=== PATIENT | female | born 1995 | race American Indian/Alaskan Native ===

== ENCOUNTER 2017-10-19 00:15 | Emergency (ER) | payer SELFPAY ==
[2017-10-19] MEDS ORDERED: Sodium Chloride 0.9% 1,000 ML IV SCH (01:00)
[2017-10-19] MEDS ORDERED: Insulin Regular 100 units/ml IV STA (01:12)
[2017-10-19] MEDS ORDERED: Insulin Regular 100 units/ml ONE (01:44)
--- NOTE | 2017-10-19 01:57 | ED PDOC ---
HPI: Abdomen <Melanie Trammell - Last Filed: 10/19/17 07:12> Chief Complaint (Provider): Abdominal Pain History Per: Patient History/Exam Limitations: no limitations Onset/Duration Of Symptoms: Days (x2) Location Of Pain/Discomfort: Diffuse Quality Of Discomfort: "Pain" Associated Symptoms: Vomiting <Rosalee Akhtar - Last Filed: 10/22/17 12:33> Time Seen by Provider: 10/19/17 00:35 Chief Complaint (Nursing): Abdominal Pain Additional Complaint(s): 22 y/o female with a PMHx of DM, HTN and asthma presents to the ED complaining of generalized abdominal pain for the last two days. Patient reports pain is sharp and most severe in the epigastric region. Patient states that tonight after eating dinner, she had nausea and 2 episodes of non-bloody, non-bilious vomiting. Patient reports pain temporarily relieved with Tylenol at 8 pm today. Patient states she is a diabetic and has not taken her insulin dosage yet tonight but took her dose this morning. Otherwise: (-) fever, (-) chills, (-) diarrhea, (-) urinary symptoms, (-) history of abdominal surgery, (-) cough, (- ) shortness of breath, (-) headache, (-) dizziness PMD: Out of State (in [place]) LNMP: 09/23/2017 (Roslaee Akhtar) Past Medical History <Melanie Trammell - Last Filed: 10/19/17 07:12> Reviewed: Historical Data, Nursing Documentation, Vital Signs - Medical History PMH: Asthma, Diabetes, HTN - Surgical History Surgical History: No Surg Hx - Family History Family History: States: Unknown Family Hx - Social History Current smoker - smoking cessation education provided: No Alcohol: Social Drugs: Cannabis <Rosalee Akhtar - Last Filed: 10/22/17 12:33> Vital Signs: Last Vital Signs Temp 98.1 F 10/19/17 11:32 Pulse 88 10/19/17 11:32 Resp 15 10/19/17 11:32 BP 116/60 10/19/17 11:32 Pulse Ox 100 10/19/17 11:32 - Home Medications Home Medications: Ambulatory Orders Medication Instructions Recorded Ciprofloxacin HCl [Cipro] 250 mg PO BID #9 tablet 10/19/17 - Allergies Allergies/Adverse Reactions: Allergies Allergy/AdvReac Type Severity Reaction Status Date / Time Iodinated Contrast- Oral and Allergy RASH Verified 10/19/17 00:32 IV Dye peanut Allergy ANAPHYLAXIS Verified 10/19/17 00:32 shellfish derived Allergy RASH Verified 10/19/17 00:32 Review of Systems ROS Statement: Except As Marked, All Systems Reviewed And Found Negative Constitutional: Negative for: Fever, Chills Respiratory: Negative for: Cough, Shortness of Breath Gastrointestinal: Positive for: Nausea, Vomiting, Abdominal Pain. Negative for : Diarrhea Genitourinary Female: Negative for: Dysuria, Frequency, Hematuria Neurological: Negative for: Headache, Dizziness <Rosalee Akhtar - Last Filed: 10/22/17 12:33> Physical Exam <Melanie Trammell - Last Filed: 10/19/17 07:12> - Reviewed Nursing Documentation Reviewed: Yes Vital Signs Reviewed: Yes <Rosalee Akhtar - Last Filed: 10/22/17 12:33> - Physical Exam Comments: GENERAL APPEARANCE: Patient is awake, alert, oriented x 3, in mild painful distress. SKIN: Warm, dry; (-) cyanosis. EYES: (-) conjunctival pallor, (-) scleral icterus. ENMT: Mucous membranes moist. Airway patent, (-) stridor. NECK: Supple, FROM CHEST AND RESPIRATORY: (-) rales, (-) rhonchi, (-) wheezes; breath sounds equal bilaterally. Respirations even and nonlabored. HEART AND CARDIOVASCULAR: (-) irregularity ABDOMEN AND GI: Soft (-) distention. Bowel sounds active x4; (+) tenderness in the right upper quadrant, left upper quadrant and epigastric tenderness. (-) guarding, (-) rebound, (-) palpable masses, (-) CVA tenderness. EXTREMITIES: (-) deformity NEURO AND PSYCH: Mental status as above; (-) focal findings. Gait steady, speech clear. (-) facial asymmetry (Rosalee Akhtar) - Laboratory Results Result Diagrams: 10/19/17 02:11 10/19/17 02:11 <Melanie Trammell - Last Filed: 10/19/17 07:12> - Laboratory Results Result Diagrams: 10/19/17 02:11 10/19/17 02:11 Urine POC: Negative Urine dip results: Positive for: Blood (large), Glucose (500). Negative for: Leukocyte Esterase, Nitrate, Ketones, Bilirubin, Protein - ECG O2 Sat by Pulse Oximetry: 97 (RA) Pulse Ox Interpretation: Normal <Rosalee Akhtar - Last Filed: 10/22/17 12:33> Medical Decision Making <Melanie Trammell - Last Filed: 10/19/17 07:12> <Rosalee Akhtar - Last Filed: 10/22/17 12:33> Medical Decision Making: Time: 0653 Plan: -- Gallbladder US Time: 07 -- Patient endorsed to Dr. Dawn, pending US. ____ Scribe Attestation: Documented by Jeff Hoff acting as a scribe for Dr. Melanie Trammell MD. Provider Scribe Attestation: All medical record entries made by the Scribe were at my direction and personally dictated by me. I have reviewed the chart and agree that the record accurately reflects my personal performance of the history, physical exam, medical decision making, and the department course for this patient. I have also personally directed, reviewed, and agree with the discharge instructions and disposition. (Melanie Trammell) Time: 010 Impression: Abdominal Pain, Nausea, Vomiting Plan: -- Amylase -- CMP -- Urine Drug Screen -- Lipase -- ED Urine -- ED Urine Dipstick -- CBC with differentials -- HumuLIN 8 units -- Sodium Chloride IV 1000 mls/hr -- Pepcid 40 mg IVP -- Toradol 30 mg IVP -- Zofran Inj 4 mg IVP -- Repair Service Clerk -- IV Insertion -- Glucose, Blood, POC -- Accucheck results = 356. 8 units of insulin ordered for elevated glucose levels. 0240 Labs reviewed and grossly unremarkable with the exception of hyperglycemia. Lipase WNL. Patient reports persistent abdominal pain however notes resolution of nausea. (+) epigastric, RUQ, and LUQ pain on re-eval CT abd/pel without PO and IV contrast ordered due to patient allergies. Patient states she required an epi-pen the last time she was given Contrast due to facial swelling, SOB. 0305 Repeat accucheck: 113 0330 Udip reviewed, U/A and U/C ordered. Upreg Negative. Repeat HR: 63 0340 Patient requesting additional pain medication at this time. Morphine 2mg IVP ordered. [address] 0500 Urine drug screen: negative Pending U/A and CT read. Time: 0615 CT RESULTS FINDINGS: Lung bases: 7 mm left lower lobe pulmonary nodule. ABDOMEN: Liver: The liver is unremarkable. Gallbladder and bile ducts: The gallbladder is unremarkable. No biliary ductal dilatation. Pancreas: The pancreas is unremarkable. Spleen: The spleen is unremarkable. Adrenals: The adrenal glands are unremarkable. Kidneys and ureters: No stones. No hydronephrosis. Stomach and bowel: Short segment of jejunal wall thickening and mild distention in the central abdomen, without a discrete transition point. No pericolonic inflammatory change or wall thickening. PELVIS: Appendix: Normal appendix. Bladder: No focal wall thickening of the urinary bladder. No stones. Reproductive: Uterus is unremarkable. No suspicious adnexal lesion seen. ABDOMEN and PELVIS: Intraperitoneal space: No significant peritoneal free fluid. No free peritoneal air. Bones/joints: No acute osseous abnormality. Soft tissues: There is a small fat-containing umbilical hernia. Vasculature: Significantly limited assessment of the vasculature without contrast. No aortic aneurysm. Lymph nodes: Mild bilateral inguinal adenopathy with nodes measuring up to 1.2 cm. IMPRESSION: 1. Short segment of jejunal wall thickening and mild distention in the central abdomen, without a discrete transition point. Infectious or inflammatory enteritis is favored. 2. Mild bilateral inguinal adenopathy with nodes measuring up to 1.2 cm. 3. 7 mm left lower lobe pulmonary nodule. Fleischner criteria do not apply to patients less than 35 years of age and followup is recommended on a clinical basis. Thank you for allowing us to participate in the care of your patient. Dictated and Authenticated by: Cm Flores MD 10/19/2017 6:14 AM Eastern Time ([place] & [place]) 0630 Continuation of care per Dr Trammell pending U/A and further disposition. ____ Scribe Attestation: Documented by Jeff Hoff acting as a scribe for Rosalee Akhtar PA-C. Provider Scribe Attestation: All medical record entries made by the Scribe were at my direction and personally dictated by me. I have reviewed the chart and agree that the record accurately reflects my personal performance of the history, physical exam, medical decision making, and the department course for this patient. I have also personally directed, reviewed, and agree with the discharge instructions and disposition. (Rosalee Akhtar) Disposition <Melanie Trammell - Last Filed: 10/19/17 07:12> - Patient ED Disposition Is Patient to be Admitted: Transfer of Care (Dr Dawn at 0700 pending U/S results) - Disposition Disposition: Transfer of Care (Dr Dawn, pending U/S results) Disposition Time: 07:00 - POA Present On Arrival: Poor Glycemic Control <Rosalee Akhtar - Last Filed: 10/22/17 12:33> - Clinical Impression Clinical Impression: Pulmonary nodule, Enteritis, UTI (urinary tract infection) - Disposition Condition: STABLE Prescriptions: Ciprofloxacin HCl [Cipro] 250 mg PO BID #9 tablet - Lab Results Lab Results: 10/19/17 10/19/17 10/19/17 06:28 03:27 03:02 WBC RBC Hgb Hct MCV MCH MCHC RDW Plt Count MPV Neut % (Auto) Lymph % (Auto) [place] % (Auto) Eos % (Auto) Baso % (Auto) Neut # (Auto) Lymph # (Auto) [place] # (Auto) Eos # (Auto) Baso # (Auto) Sodium Potassium Chloride Carbon Dioxide Anion Gap BUN Creatinine Est GFR ( Amer) Est GFR (Non-Af Amer) POC Glucose (mg/dL) 113 H Random Glucose Calcium Total Bilirubin AST ALT Alkaline Phosphatase Total Protein Albumin Globulin Albumin/Globulin Ratio Amylase Lipase Urine Color Yellow Urine Clarity Cloudy Urine pH 5.0 Ur Specific [place] 1.035 H Urine Protein 100 Urine Glucose (UA) >=500 Urine Ketones 20 Urine Blood Large Urine Nitrate Negative Urine Bilirubin Negative Urine Urobilinogen 2.0 H Ur Leukocyte Esterase Small Urine RBC (Auto) 1343 H Urine Microscopic WBC 38 H Ur Squamous Epith Cells 3 Urine Bacteria Occ H Urine Opiates Screen Negative Urine Methadone Screen Negative Ur Barbiturates Screen Negative Ur Phencyclidine Scrn Negative Ur Amphetamines Screen Negative U Benzodiazepines Scrn Negative U Oth Cocaine Metabols Negative U Cannabinoids Screen Negative 10/19/17 10/19/17 10/19/17 02:11 02:11 01:11 WBC 8.3 RBC 4.98 Hgb 13.5 Hct 40.0 MCV 80.3 L MCH 27.1 MCHC 33.7 RDW 13.1 Plt Count 356 MPV 8.2 Neut % (Auto) 56.5 Lymph % (Auto) 34.2 [place] % (Auto) 6.6 Eos % (Auto) 1.6 Baso % (Auto) 1.1 Neut # (Auto) 4.7 Lymph # (Auto) 2.9 [place] # (Auto) 0.6 Eos # (Auto) 0.1 Baso # (Auto) 0.1 Sodium 137 Potassium 4.1 Chloride 97 L Carbon Dioxide 26 Anion Gap 18 BUN 10 Creatinine 0.5 L Est GFR ( Amer) > 60 Est GFR (Non-Af Amer) > 60 POC Glucose (mg/dL) 359 H Random Glucose 375 H Calcium 9.2 Total Bilirubin 0.4 AST 24 ALT 18 Alkaline Phosphatase 67 Total Protein 7.4 Albumin 4.1 Globulin 3.3 Albumin/Globulin Ratio 1.2 Amylase 117 H Lipase 223 Urine Color Urine Clarity Urine pH Ur Specific [place] Urine Protein Urine Glucose (UA) Urine Ketones Urine Blood Urine Nitrate Urine Bilirubin Urine Urobilinogen Ur Leukocyte Esterase Urine RBC (Auto) Urine Microscopic WBC Ur Squamous Epith Cells Urine Bacteria Urine Opiates Screen Urine Methadone Screen Ur Barbiturates Screen Ur Phencyclidine Scrn Ur Amphetamines Screen U Benzodiazepines Scrn U Oth Cocaine Metabols U Cannabinoids Screen
[2017-10-19 02:19] LABS: BASO # 0.1 K/uL (0.0-0.2); BASO % 1.1 % (0.0-2.0); EOS # 0.1 K/uL (0.0-0.7); EOS % 1.6 % (0.0-4.0); HEMOGLOBIN 13.5 g/dL (12.0-16.0); LYMPH # 2.9 K/uL (1.0-4.3); LYMPH % 34.2 % (20.0-40.0); MEAN CELL VOLUME 80.3 fl (81.0-99.0); MEAN CORPUSCULAR HEMOGLOBIN 27.1 pg (27.0-31.0); MEAN CORPUSCULAR HGB CONC 33.7 g/dL (33.0-37.0); MEAN PLATELET VOLUME 8.2 fl (7.2-11.7); MONO # 0.6 K/uL (0.0-0.8); MONO % 6.6 % (0.0-10.0); NEUT # 4.7 K/uL (1.8-7.0); NEUT % 56.5 % (50.0-75.0); RBC 4.98 Mil/uL (3.80-5.20); RED CELL DISTRIBUTION WIDTH 13.1 % (11.5-14.5); WHITE BLOOD COUNT 8.3 K/uL (4.8-10.8)
[2017-10-19 02:25] LABS: ALB/GLOB RATIO 1.2 (1.0-2.1); ALBUMIN 4.1 g/dL (3.5-5.0); ALT/SGPT 18 U/L (9-52); AMYLASE 117 U/L (30-110); AST/SGOT 24 U/L (14-36); BLOOD UREA NITROGEN 10 mg/dl (7-17); CALCIUM 9.2 mg/dL (8.4-10.2); GFR AFRICAN-AMERICAN > 60; GFR NON-AFRICAN AMERICAN > 60; LIPASE 223 U/L (23-300)
[2017-10-19] MEDS ORDERED: Iohexol 240 (50 ml) ONE (03:33)
[2017-10-19 03:49] LABS: BARBITURATES, UR NEGATIVE (NEGATIVE); BENZODIAZEPINES, UR NEGATIVE (NEGATIVE); OPIATES, UR NEGATIVE (NEGATIVE); PHENCYCLIDINE, UR NEGATIVE (NEGATIVE)
[2017-10-19 06:48] LABS: SQUAMOUS EPITHIAL 3 /hpf (0-5); URINE BACTERIA OCC (<OCC); URINE BILIRUBIN NEGATIVE (NEGATIVE); URINE BLOOD LARGE (NEGATIVE); URINE CLARITY CLOUDY (Clear); URINE COLOR YELLOW (YELLOW); URINE GLUCOSE (UA) >=500 mg/dL (Normal); URINE LEUKOCYTE ESTERASE SMALL Leu/uL (Negative); URINE PROTEIN 100 mg/dL (NEGATIVE)
--- NOTE | 2017-10-19 07:07 | ED PDOC ---
- Laboratory Results Result Diagrams: 10/19/17 02:11 10/19/17 02:11 Urine POC: Negative - ECG O2 Sat by Pulse Oximetry: 97 (RA) Disposition - Clinical Impression Clinical Impression: Abdominal pain, Pulmonary nodule, Enteritis - Disposition Forms: [employer] ([place]) Addendum Addendum: 10/19/17 07:00 Pt signed out by Dr. Trammell pending ultrasound, UTI.
--- NOTE | 2017-10-19 10:44 | US ---
Date of service: 10/19/2017 HISTORY: RUQ pain COMPARISON: None. TECHNIQUE: Sonographic evaluation of the right upper quadrant of the abdomen. FINDINGS: LIVER: Measures 15.0 cm in length. Diffusely increased echogenicity of the liver parenchyma. Consistent with fatty infiltration. Smooth contour. No mass. No biliary ductal dilatation. GALLBLADDER: Gallbladder contracted. No calculi. No mural thickening. Negative sonographic Smith sign. COMMON BILE DUCT: Measures 2 mm. No stones. No dilatation. PANCREAS: Unremarkable as visualized. No mass. No ductal dilatation. RIGHT KIDNEY: Measures 11.3 cm in length. Normal echogenicity. No calculus, mass, or hydronephrosis. AORTA: No aneurysmal dilatation. IVC: Unremarkable. OTHER FINDINGS: None . IMPRESSION: Unremarkable examination aside from fatty infiltration of the liver.
[2017-10-19 11:32] VITALS: BP 116/60; PULSE 88; RESP 15; TEMP 98.1
--- NOTE | 2017-10-19 11:58 | CT ---
Date of service: 10/19/2017 PROCEDURE: CT Abdomen and Pelvis without intravenous contrast HISTORY: abdominal pain, N V COMPARISON: None. TECHNIQUE: Without contrast.. Contrast dose: 0 Radiation dose: Total exam DLP = 738.91 mGy-cm. This CT exam was performed using one or more of the following dose reduction techniques: Automated exposure control, adjustment of the mA and/or kV according to patient size, and/or use of iterative reconstruction technique. FINDINGS: LOWER THORAX: 7 mm sub solid nodule in left lower lobe. Recommend followup noncontrast chest CT examination in 6-12 months as per Fleischner society criteria. LIVER: Unremarkable. No gross lesion or ductal dilatation. GALLBLADDER AND BILE DUCTS: Unremarkable. PANCREAS: Unremarkable. No gross lesion or ductal dilatation. SPLEEN: Unremarkable. ADRENALS: Unremarkable. No mass. KIDNEYS AND URETERS: Unremarkable. No hydronephrosis. No solid mass. VASCULATURE: Unremarkable. No aortic aneurysm. BOWEL: Mild dilatation and mural thickening of several loops of jejunum in the central upper abdomen. Nonspecific. Consistent with focal enteritis. No other abnormal bowel loops are identified. APPENDIX: Unremarkable. Normal appendix. PERITONEUM: Minimal fluid in cul-de-sac. Small umbilical hernia containing only mesenteric fat. No pneumoperitoneum. LYMPH NODES: Shotty subcentimeter pelvic and inguinal lymph nodes. Mild dwain enlargement of several inguinal nodes bilaterally. BLADDER: Poorly distended REPRODUCTIVE: Normal uterus BONES: No acute fracture. OTHER FINDINGS: None. IMPRESSION: Nonspecific focal enteritis in central upper abdomen. No other acute abnormality identified. Please note 7 mm sub solid nodule left lower lobe for which followup noncontrast chest CT examination is advised in 6-12 months as per Fleischner society criteria. The preliminary findings for this examination were reported by [employer] at 6:14 a.m. on 10/19/2017. There is discordance of this report with the preliminary findings. See above recommendation regarding follow-up for left lower lobe pulmonary nodule.
[2017-10-22 12:31] VITALS: O2SAT 97
== END 2017-10-19 11:32 | disposition home or self-care (01) ==
LOC: H.ER 00:15
DX: R91.1 Solitary pulmonary nodule (principal); K52.9 Noninfective gastroenteritis and colitis, unspecified; Z79.4 Long term (current) use of insulin; E11.65 Type 2 diabetes mellitus with hyperglycemia; I10 Essential (primary) hypertension; J45.909 Unspecified asthma, uncomplicated
CPT/HCPCS: 74176; 76705; 80053; 81003; 81025; 82150; 82948; 83690; 85025; 87086; 87181; 96361; 96374; 96375; 99284; G0480; J1885; J2270; J2405; J7030

== ENCOUNTER 2017-12-10 00:20 | Emergency (ER) | payer MEDICAID ==
[2017-12-10] MEDS ORDERED: Sodium Chloride 0.9% 1,000 ML IV STA ×3 (00:50→07:51)
[2017-12-10] MEDS ORDERED: Albuterol-Ipratrop 3 mg / 0.5 (3 ml) UD INH STA (00:51)
--- NOTE | 2017-12-10 00:58 | ED PDOC ---
Syncope/Near Syncope/Dizziness Time Seen by Provider: 12/10/17 00:30 Chief Complaint (Nursing): Dizziness/Lightheaded Chief Complaint (Provider): generalized sickness History Per: Patient History/Exam Limitations: no limitations Onset/Duration Of Symptoms: Days (x1 week) Additional Complaint(s): Ernestine Morfin, a 22 year old female with past medical history of diabetes, hypertension and asthma, presents to the emergency room after being off her diabetes medication for one week. Patient states she feels "being sick from not being on diabetes medication for a week". She reports not having a prescription as she is in between doctors right now and therefore does not have a PMD. Patient denies fever or vomiting, but states wheezing started tonight. She has a history of alcohol and substance abuse. Past Medical History Reviewed: Historical Data, Nursing Documentation, Vital Signs Vital Signs: Last Vital Signs Temp 98.1 F 12/10/17 00:46 Pulse 106 H 12/10/17 00:46 Resp 16 12/10/17 00:46 BP 124/65 12/10/17 00:46 Pulse Ox 98 12/10/17 00:46 - Medical History PMH: Asthma, Diabetes, HTN - Surgical History Surgical History: No Surg Hx - Family History Family History: States: Unknown Family Hx - Social History Current smoker - smoking cessation education provided: No Alcohol: None (alcohol abuse) Drugs: Other (substance abuse) - Home Medications Home Medications: Ambulatory Orders Medication Instructions Recorded Insulin Aspart, Recombinant 7 unit SC TID 11/09/17 [Novolog] Insulin Glargine, Recombina 20 unit SC QPM 11/09/17 [Lantus] Lisinopril 1 tab PO DAILY 11/09/17 Insulin Aspart Prot/Insuln Asp 7 unit SQ DAILY #1 vial 12/10/17 [Novolog Mix 70-30 Vial] Insulin Glargine,Hum.rec.anlog 20 unit SQ HS #1 vial 12/10/17 [Lantus] - Allergies Allergies/Adverse Reactions: Allergies Allergy/AdvReac Type Severity Reaction Status Date / Time Iodinated Contrast- Oral and Allergy RASH Verified 10/19/17 00:32 IV Dye peanut Allergy ANAPHYLAXIS Verified 10/19/17 00:32 shellfish derived Allergy RASH Verified 10/19/17 00:32 Review of Systems ROS Statement: Except As Marked, All Systems Reviewed And Found Negative Constitutional: Positive for: Other (" sick from not being on diabetes medication for a week"). Negative for: Fever Respiratory: Positive for: Wheezing Gastrointestinal: Negative for: Vomiting Physical Exam - Reviewed Nursing Documentation Reviewed: Yes Vital Signs Reviewed: Yes - Physical Exam Appears: Positive for: Well, Non-toxic, No Acute Distress Head Exam: Positive for: ATRAUMATIC, NORMAL INSPECTION, NORMOCEPHALIC Skin: Positive for: Normal Color Eye Exam: Positive for: Normal appearance ENT: Positive for: Normal ENT Inspection Neck: Positive for: Normal Cardiovascular/Chest: Positive for: Regular Rate, Rhythm Respiratory: Positive for: Wheezing (slight) Gastrointestinal/Abdominal: Positive for: Normal Exam, Soft Extremity: Positive for: Normal ROM Neurologic/Psych: Positive for: Alert, Oriented Comments: speaking in full sentences - Laboratory Results Result Diagrams: 12/10/17 01:02 12/10/17 01:02 - ECG O2 Sat by Pulse Oximetry: 98 (RA) Pulse Ox Interpretation: Normal Medical Decision Making Medical Decision Making: Time: 00:45 Initial Impression: asthma exac, diabetes uncontrolled, rule out DKA,, infection Initial Plan: --CMP --CBC w/ differential --Cxr portable --Glucose --Duoneb 3 ml inh --Sodium chloride 1000 ml IV --Urine culture --Urine test --Peak flow pre/post --Urinalysis 00:55 - sugar greater than 500- pt given insulin, iv fluids AG normal after nebulizer, pt wheezing imrpoved and states she feels better rest of labs reviewed. no signs of infection 7 am pt signed out to dr mcclain pending reeval/repeat sugar Scribe Attestation: Documented by Blanquita Flores, acting as a scribe for Sagar Mendez MD. Provider Scribe Attestation: All medical record entries made by the Scribe were at my direction and personally dictated by me. I have reviewed the chart and agree that the record accurately reflects my personal performance of the history, physical exam, medical decision making, and the department course for this patient. I have also personally directed, reviewed, and agree with the discharge instructions and disposition. Disposition - Clinical Impression Clinical Impression: Uncontrolled diabetes mellitus - Patient ED Disposition Is Patient to be Admitted: Transfer of Care - Disposition Referrals: [facility] [Outside] Disposition: Transfer of Care Disposition Time: 07:00 Condition: STABLE Prescriptions: Insulin Aspart Prot/Insuln Asp [Novolog Mix 70-30 Vial] 7 unit SQ DAILY #1 vial Insulin Glargine,Hum.rec.anlog [Lantus] 20 unit SQ HS #1 vial Instructions: Type 1 Diabetes Forms: [employer] ([place]), [employer] ED School/Work Excuse Patient Signed Over To: Ventura Mcclain
[2017-12-10] MEDS ORDERED: Albuterol-Ipratrop 3 mg / 0.5 (3 ml) UD ONE (01:08)
[2017-12-10 01:39] LABS: BASO % 0.6 % (0.0-2.0); EOS # 0.2 K/uL (0.0-0.7); EOS % 2.6 % (0.0-4.0); HEMOGLOBIN 12.2 g/dL (12.0-16.0); LYMPH # 2.5 K/uL (1.0-4.3); LYMPH % 34.8 % (20.0-40.0); MEAN CORPUSCULAR HEMOGLOBIN 26.1 pg (27.0-31.0); MEAN CORPUSCULAR HGB CONC 32.2 g/dL (33.0-37.0); MEAN PLATELET VOLUME 8.5 fl (7.2-11.7); MONO # 0.5 K/uL (0.0-0.8); MONO % 7.5 % (0.0-10.0); NEUT % 54.5 % (50.0-75.0); NRBC % 0.1 % (0.0-0.0); RBC 4.66 Mil/uL (3.80-5.20); RED CELL DISTRIBUTION WIDTH 12.4 % (11.5-14.5); WHITE BLOOD COUNT 7.3 K/uL (4.8-10.8)
[2017-12-10 01:40] LABS: SQUAMOUS EPITHIAL 1 /hpf (0-5); URINE BILIRUBIN NEGATIVE (NEGATIVE); URINE BLOOD SMALL (NEGATIVE); URINE CLARITY CLEAR (Clear); URINE COLOR STRAW (YELLOW); URINE GLUCOSE (UA) >=500 mg/dL (Normal); URINE LEUKOCYTE ESTERASE MOD Leu/uL (Negative); URINE PROTEIN NEGATIVE (NEGATIVE); URINE UROBILINOGEN 0.2-1.0 mg/dL (0.2-1.0)
[2017-12-10 02:20] LABS: ALB/GLOB RATIO 1.2 (1.0-2.1); ALBUMIN 3.9 g/dL (3.5-5.0); ALT/SGPT 15 U/L (9-52); AST/SGOT 13 U/L (14-36); BLOOD UREA NITROGEN 10 mg/dl (7-17); CALCIUM 9.2 mg/dL (8.4-10.2); GFR NON-AFRICAN AMERICAN > 60
[2017-12-10 02:26] LABS: ABG ALLEN TEST YES; ARTERIAL BLOOD GAS HCO3 24.3 mmol/L (21-28); ARTERIAL BLOOD GAS O2 SAT 52.5 % (95-98); ARTERIAL BLOOD GAS PCO2 53 mm/Hg (35-45); ARTERIAL BLOOD GAS PH 7.33 (7.35-7.45); ARTERIAL BLOOD GAS PO2 28 mm/Hg (80-100); ARTERIAL BLOOD GAS TCO2 29.5 mmol/L (22-28)
[2017-12-10] MEDS ORDERED: Insulin Regular 100 units/ml SC STA ×3 (03:44→06:17)
[2017-12-10] MEDS ORDERED: Insulin Regular 100 units/ml ONE (04:48)
[2017-12-10 07:56] VITALS: RESP 16
--- NOTE | 2017-12-10 10:05 | RAD ---
Date of service: 12/10/2017 HISTORY: sob COMPARISON: No prior. FINDINGS: LUNGS: No active pulmonary disease. PLEURA: No significant pleural effusion identified, no pneumothorax apparent. CARDIOVASCULAR: Normal. OSSEOUS STRUCTURES: No significant abnormalities. VISUALIZED UPPER ABDOMEN: Normal. OTHER FINDINGS: None. IMPRESSION: No acute cardiopulmonary disease appreciated.
--- NOTE | 2017-12-10 10:26 | ED PDOC ---
- Laboratory Results Result Diagrams: 12/10/17 01:02 12/10/17 01:02 - ECG O2 Sat by Pulse Oximetry: 100 Medical Decision Making Medical Decision Making: Glucose improving 308. Anion gap nl. Pt asymptomatic Pt noncompliant with meds Will write Rx for Novolg and Lantus Disposition - Clinical Impression Clinical Impression: Uncontrolled diabetes mellitus - POA Present On Arrival: None - Disposition Referrals: [facility] [Outside] Disposition: Routine/Home Disposition Time: 10:26 Prescriptions: Insulin Aspart Prot/Insuln Asp [Novolog Mix 70-30 Vial] 7 unit SQ DAILY #1 vial Insulin Glargine,Hum.rec.anlog [Lantus] 20 unit SQ HS #1 vial Instructions: Type 1 Diabetes Forms: [employer] [facility] ([place])
[2017-12-10 11:09] VITALS: BP 125/80; PULSE 75; TEMP 97.9
[2017-12-11 18:36] VITALS: O2SAT 98
== END 2017-12-10 11:15 | disposition home or self-care (01) ==
LOC: H.ER 00:20
DX: E11.65 Type 2 diabetes mellitus with hyperglycemia (principal); Z79.4 Long term (current) use of insulin; Z91.14 Patient's other noncompliance with medication regimen; I10 Essential (primary) hypertension; J45.901 Unspecified asthma with (acute) exacerbation
CPT/HCPCS: 36600; 71045; 80053; 81003; 81025; 82803; 82948; 85025; 87086; 96361; 96374; 99285; J2930; J7030

== ENCOUNTER 2017-12-16 23:04 | Emergency (ER) | payer MEDICAID ==
[2017-12-16 23:15] VITALS: RESP 16; O2SAT 99
[2017-12-16] MEDS ORDERED: Sodium Chloride 0.9% 1,000 ML IV STA (23:42)
[2017-12-16] MEDS ORDERED: Lidocaine 5% Patch TD STA (23:42)
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
[2017-12-17] MEDS ORDERED: Insulin Regular 100 units/ml SC STA (00:46)
[2017-12-17] MEDS ORDERED: Lidocaine 5% Patch TD ONE (01:11)
--- NOTE | 2017-12-17 02:20 | ED PDOC ---
- ECG O2 Sat by Pulse Oximetry: 99 (RA) Medical Decision Making Medical Decision Making: Time: 00:00 patient signed out to Dr. Joo Diop by provider pending studies 03:00 Patient has fecal retention on CT Patient sleeping soundly throughout ED stay, needed to be shaken to be awoken Advised stool softeners, muscle relaxants, and NSAIDs for pain Very well appearing, ambulatory upon discharge Disposition - Clinical Impression Clinical Impression: Constipation, Muscle pain - POA Present On Arrival: None - Disposition Disposition: Routine/Home Disposition Time: 03:00 Condition: IMPROVED Additional Instructions: [place] your [place] [facility] [place] Prescriptions: Cyclobenzaprine [Cyclobenzaprine HCl] 10 mg PO BID #15 tab Docusate Sodium [Dulcolax Stool Softener] 100 mg PO DAILY #12 capsule Lidocaine 1 each TP DAILY #10 adh..patch Instructions: Constipation in Adults, Hyperglycemia, Adult, Muscle and Bone Pain (DC) Forms: [facility] ([place]ese)
[2017-12-17 02:36] LABS: BARBITURATES, UR NEGATIVE (NEGATIVE); BENZODIAZEPINES, UR NEGATIVE (NEGATIVE); PHENCYCLIDINE, UR NEGATIVE (NEGATIVE)
[2017-12-17 02:56] LABS: OPIATES, UR NEGATIVE (NEGATIVE)
[2017-12-17 04:01] VITALS: BP 116/70; PULSE 83; TEMP 98.3
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
== END 2017-12-17 04:01 | disposition home or self-care (01) ==
LOC: H.ER 23:04
DX: K59.00 Constipation, unspecified (principal); M79.18 Myalgia, other site; E11.649 Type 2 diabetes mellitus with hypoglycemia without coma; R10.9 Unspecified abdominal pain; Z79.4 Long term (current) use of insulin
CPT/HCPCS: 71250; 74176; 80324; 80345; 80346; 80349; 80353; 80358; 80361; 81025; 82948; 83992; 96372; 99284; J1885

== ENCOUNTER 2017-12-26 00:35 | Emergency (ER) | payer MEDICAID ==
[2017-12-26] MEDS ORDERED: Albuterol-Ipratrop 3 mg / 0.5 (3 ml) UD ONE (00:45)
[2017-12-26] MEDS ORDERED: Albuterol-Ipratrop 3 mg / 0.5 (3 ml) UD INH STA (00:46)
[2017-12-26] MEDS ORDERED: Sodium Chloride 0.9% 1,000 ML IV STA (01:36)
--- NOTE | 2017-12-26 01:48 | ED PDOC ---
HPI: SOB/CHF/COPD Time Seen by Provider: 12/26/17 00:43 Chief Complaint (Nursing): Shortness Of Breath Chief Complaint (Provider): Shortness of Breath History Per: Patient History/Exam Limitations: no limitations Onset/Duration Of Symptoms: Days (1x) Current Symptoms Are (Timing): Still Present Initiating Event: Out Of Medications (albuterol) Current Respiratory Medications: Albuterol Severity: Moderate Associated Symptoms: denies: Fever, Chest Pain Additional Complaint(s): 22 year old female with a past medical history of asthma and diabetes presents to the ED with complaints of shortness of breath for 1x day. Patient reports also having an intermittent dry cough for 1x week. Patient states she has not been to the ED for similar symptoms in the past, but she ran out of albuterol (pump) which is what prompted her visit to the ED today. Patient denies having fevers and chest pain. PMD: None Past Medical History Reviewed: Historical Data, Nursing Documentation, Vital Signs Vital Signs: Last Vital Signs Temp 97.5 F L 12/26/17 00:42 Pulse 107 H 12/26/17 00:42 Resp 25 H 12/26/17 01:04 BP 125/47 L 12/26/17 00:42 Pulse Ox 100 12/26/17 00:42 - Medical History PMH: Asthma, Diabetes, HTN - Surgical History Surgical History: No Surg Hx - Family History Family History: States: Diabetes - Home Medications Home Medications: Ambulatory Orders Medication Instructions Recorded Insulin Aspart, Recombinant 7 unit SC TID 11/09/17 [Novolog] Insulin Glargine, Recombina 20 unit SC QPM 11/09/17 [Lantus] Lisinopril 1 tab PO DAILY 11/09/17 Cyclobenzaprine [Cyclobenzaprine 10 mg PO BID #15 tab 12/17/17 HCl] Docusate Sodium [Dulcolax Stool 100 mg PO DAILY #12 capsule 12/17/17 Softener] Lidocaine 1 each TP DAILY #10 adh..patch 12/17/17 Albuterol HFA [Ventolin HFA 90 2 puff IH Q4 PRN #1 inh 12/26/17 mcg/actuation (8 g)] Insulin Aspart Prot/Insuln Asp 7 unit SQ DAILY #1 vial 12/26/17 [Novolog Mix 70-30 Vial] Insulin Glargine,Hum.rec.anlog 20 unit SQ HS #1 vial 12/26/17 [Lantus] Prednisone 50 mg PO DAILY #3 tablet 12/26/17 - Allergies Allergies/Adverse Reactions: Allergies Allergy/AdvReac Type Severity Reaction Status Date / Time Iodinated Contrast- Oral and Allergy RASH Verified 12/16/17 23:13 IV Dye peanut Allergy ANAPHYLAXIS Verified 12/16/17 23:13 shellfish derived Allergy RASH Verified 12/16/17 23:13 Review of Systems ROS Statement: Except As Marked, All Systems Reviewed And Found Negative Constitutional: Negative for: Fever Cardiovascular: Negative for: Chest Pain Respiratory: Positive for: Cough (dry, intermittent for 1x week), Shortness of Breath Physical Exam - Reviewed Nursing Documentation Reviewed: Yes Vital Signs Reviewed: Yes - Physical Exam Appears: Positive for: Well, Non-toxic, No Acute Distress Head Exam: Positive for: ATRAUMATIC, NORMOCEPHALIC Skin: Positive for: Normal Color, Warm, Dry Eye Exam: Positive for: Normal appearance, EOMI, PERRL Neck: Positive for: Normal, Painless ROM, Supple Cardiovascular/Chest: Positive for: Tachycardia, Other (heart sounds weak as per auscultation) Respiratory: Positive for: Wheezing. Negative for: Respiratory Distress Gastrointestinal/Abdominal: Positive for: Normal Exam, Soft. Negative for: Tenderness Neurologic/Psych: Positive for: Alert, Oriented (3x) - Laboratory Results Result Diagrams: 12/26/17 02:00 12/26/17 02:00 - ECG O2 Sat by Pulse Oximetry: 100 (RA) Pulse Ox Interpretation: Normal Nebulizer Treatments/Peak Flow - Duonebs Number of Bronchodilator Doses given?: 1 - Pre/Post Peak Flow Pre Treatment Peak Flow: 1 Post treatment Peak Flow: 1 - Steroid Treatment Steroid: Oral - Clinical Response Clinical Response: Improved Medical Decision Making Medical Decision Makin:43 Initial impression: 22 year old female with difficulty breathing, wheezing, and cough. Differential diagnoses include but are not limited to asthma exacerbation, hyperglycemia additionally. Initial plan: * EKG * BMP * CBC * accucheck * duoneb 3 ml INH * IV NS 1,000 ml IV 1,000 mls/hr * prednisone tab 60 mg PO * peak flow pre post tx * reevaluation 1:36 accucheck: 400 Scribe Attestation: Documented byRosalee Holm, acting as a scribe for Melanie Trammell MD. Provider Scribe Attestation: All medical record entries made by the Scribe were at my direction and personally dictated by me. I have reviewed the chart and agree that the record accurately reflects my personal performance of the history, physical exam, medical decision making, and the department course for this patient. I have also personally directed, reviewed, and agree with the discharge instructions and disposition. Disposition - Clinical Impression Clinical Impression: Asthma attack, Hyperglycemia, Diabetes mellitus with hyperglycemia - Patient ED Disposition Is Patient to be Admitted: No Doctor Will See Patient In The: Office Counseled Patient/Family Regarding: Studies Performed, Diagnosis, Need For Followup - Disposition Referrals: [facility] [Outside] Disposition: Routine/Home Disposition Time: 04:51 Condition: GOOD Additional Instructions: DINH SR, thank you for letting us take care of you today. Your provider was Melanie Trammell MD and you were treated for SOB. The emergency medical care you received today was directed at your acute symptoms. If you were prescribed any medication, please fill it and take as directed. It may take several days for your symptoms to resolve. Return to the Emergency Department if your symptoms worsen, do not improve, or if you have any other problems. Please contact your doctor or call one of the physicians/clinics you have been referred to that are listed on the Patient Visit Information form that is included in your discharge packet. Bring any paperwork you were given at discharge with you along with any medications you are taking to your follow up visit. Our treatment cannot replace ongoing medical care by a primary care provider outside of the emergency department. Thank you for allowing the [facility] team to be part of your care today. If you had an X-Ray or CT scan: A Radiologist will review the ED reading if any change in treatment is needed we will contact you. If you had a blood, urine, or wound culture: It will take several days for the results, if any change in treatment is needed we will contact you. If you had an STI test: It will take 48 hours for the results. Please call after 1 week if you have not heard back. Prescriptions: Albuterol HFA [Ventolin HFA 90 mcg/actuation (8 g)] 2 puff IH Q4 PRN #1 inh PRN Reason: Wheezing Insulin Aspart Prot/Insuln Asp [Novolog Mix 70-30 Vial] 7 unit SQ DAILY #1 vial Insulin Glargine,Hum.rec.anlog [Lantus] 20 unit SQ HS #1 vial Instructions: Asthma, Adult (DC), Hyperglycemia, Adult (DC)
[2017-12-26 02:11] LABS: BASO # 0.1 K/uL (0.0-0.2); BASO % 0.5 % (0.0-2.0); EOS # 0.1 K/uL (0.0-0.7); EOS % 0.9 % (0.0-4.0); HEMOGLOBIN 11.6 g/dL (12.0-16.0); LYMPH # 3.6 K/uL (1.0-4.3); LYMPH % 30.9 % (20.0-40.0); MEAN CELL VOLUME 81.1 fl (81.0-99.0); MEAN CORPUSCULAR HEMOGLOBIN 26.5 pg (27.0-31.0); MEAN CORPUSCULAR HGB CONC 32.7 g/dL (33.0-37.0); MEAN PLATELET VOLUME 7.8 fl (7.2-11.7); MONO # 1.1 K/uL (0.0-0.8); MONO % 9.2 % (0.0-10.0); NEUT # 6.8 K/uL (1.8-7.0); NEUT % 58.5 % (50.0-75.0); RBC 4.36 Mil/uL (3.80-5.20); RED CELL DISTRIBUTION WIDTH 12.6 % (11.5-14.5); WHITE BLOOD COUNT 11.7 K/uL (4.8-10.8)
[2017-12-26 02:21] LABS: BLOOD UREA NITROGEN 11 mg/dl (7-17); GFR NON-AFRICAN AMERICAN > 60
[2017-12-26] MEDS ORDERED: Insulin Regular 100 units/ml IV STA (02:27)
[2017-12-26] MEDS ORDERED: Insulin Regular 100 units/ml SC STA (02:28)
[2017-12-26 06:05] VITALS: BP 133/80; PULSE 100; RESP 18; TEMP 97.8; O2SAT 98
== END 2017-12-26 05:55 | disposition home or self-care (01) ==
LOC: H.ER 00:35
DX: J45.909 Unspecified asthma, uncomplicated (principal); E11.65 Type 2 diabetes mellitus with hyperglycemia; Z79.4 Long term (current) use of insulin; I10 Essential (primary) hypertension
CPT/HCPCS: 80048; 82948; 85025; 94640; 96372; 99283; J7030